=== PATIENT | female | born 1995 | race Caucasian/White ===

== ENCOUNTER 2022-11-28 09:36 | Outpatient (CLI) | payer BC, SELFPAY ==
[2022-11-28] VITALS (7 sets, daily range): BP systolic 107–113; BP diastolic 59–66; PULSE 92–101
[2022-11-28 10:08] LABS: Hematocrit 36.2 % (33.0-51.0); Hemoglobin* 12.2 gm/dL (12.0-16.0); Mean Corpuscular HGB Conc 34 gm/dL (32-36); Mean Corpuscular Hemoglobin 30 pg (26-34); Mean Corpuscular Volume 90 fL (80-100); Platelet Count* 180 K/uL (140-440); Red Blood Count 4.03 m/uL (4.00-5.20); White Blood Count* 10.65 K/uL (4.50-11.00)
[2022-11-28 10:15] LABS: Slide Review Reflex No
[2022-11-28] MEDS: LACTATED RINGERS 1000 ML 1,000 ML IV (10:15)
[2022-11-28] MEDS: ACETAMINOPHEN 500 MG TABLET 1000 MG PO (10:16)
[2022-11-28 10:28] LABS: INR 0.98 (0.91-1.10); Prothrombin Time 13.6 Seconds
[2022-11-28 10:29] LABS: Alanine Aminotransferase* 22 U/L (4-35); Aspartate Amino Transferase* 20 U/L (12-35); Blood Urea Nitrogen* 8 mg/dL (5-24); Creatinine* 0.5 mg/dL (0.5-1.5); Estimated Glomerular Filt Rate 131 ml/min; Fibrinogen* 489 mg/dL (200-450)
[2022-11-28] MEDS: diphenhydrAMINE 50 MG/ML inj IVP (10:30)
[2022-11-28 12:36] LABS: PCR FLU A Negative PCR FLU A (Negative); PCR FLU B Negative PCR FLU B (Negative); SARS PCR* Negative SARS-CoV-2 (Negative)
[2022-11-28 13:03] LABS: Total Protein Urine 16 mg/dL
[2022-11-28 13:04] LABS: Creatinine Urine 29.5 mg/dL
== END 2022-11-28 12:35 | disposition home or self-care (01) ==
LOC: OB OUT 09:36 → OB 09:37
PROVIDERS: PCP Family Medicine; Visit Provider Family Medicine
DX: O26.893 Other specified pregnancy related conditions, third trimester (principal); R51.9 Headache, unspecified; Z3A.28 28 weeks gestation of pregnancy
CPT/HCPCS: 36415; 59025; 82565; 82570; 84156; 84450; 84460; 84520; 85027; 85384; 85610; 87631; 87635; 87804; 99213; A9270; J1200; J7120

== ENCOUNTER 2022-11-30 12:59 | Outpatient (REF) | payer BC, SELFPAY ==
[2022-11-30 13:43] LABS: Total Protein Urine 14 mg/dL
[2022-11-30 13:44] LABS: Creatinine Urine 81.9 mg/dL
[2022-11-30 13:50] LABS: Collection Time Urine 24 Hours; Total Protein 24 Hour Urine 212.8 mg/Day; Total Volume 24 Hour Urine 1520 ml; Urine Creatinine mg/24 Hour 0 mg/Day
== END 2022-11-30 13:00 | disposition home or self-care (01) ==
LOC: LAB 12:59
PROVIDERS: PCP Family Medicine; Visit Provider Family Medicine
DX: Z34.93 Encounter for supervision of normal pregnancy, unspecified, third trimester (principal)
CPT/HCPCS: 82570; 84156

== ENCOUNTER 2022-12-24 10:44 | Outpatient (CLI) | payer BC, SELFPAY ==
[2022-12-24] VITALS (16 sets, daily range): BP systolic 99–126; BP diastolic 52–77; PULSE 80–101; RESP 16–18; TEMP 36.7–36.9
[2022-12-24] MEDS: ONDANSETRON 2 MG/ML inj 4 MG IVP (11:34)
[2022-12-24] MEDS: diphenhydrAMINE 50 MG/ML inj IVP (11:34)
[2022-12-24] MEDS: LACTATED RINGERS 1000 ML 1,000 ML IV ×2 (11:34→12:51)
[2022-12-24 11:58] LABS: Hematocrit 37.6 % (33.0-51.0); Hemoglobin* 12.3 gm/dL (12.0-16.0); Mean Corpuscular HGB Conc 33 gm/dL (32-36); Mean Corpuscular Hemoglobin 30 pg (26-34); Mean Corpuscular Volume 92 fL (80-100); Platelet Count* 212 K/uL (140-440); White Blood Count* 16.46 K/uL (4.50-11.00)
[2022-12-24 12:07] LABS: Slide Review Reflex No
[2022-12-24 12:17] LABS: Alanine Aminotransferase* 21 U/L (4-35); Aspartate Amino Transferase* 22 U/L (12-35); Blood Urea Nitrogen* 10 mg/dL (5-24); Creatinine* 0.4 mg/dL (0.5-1.5); Estimated Glomerular Filt Rate 138 ml/min
[2022-12-24] MEDS: BUTALB/ACETAMINOPHEN/CAFFEINE 1 EACH TABLET PO (12:51)
[2022-12-24 13:19] LABS: Total Protein Urine 35 mg/dL
--- NOTE | 2022-12-24 13:58 | CRLHL7_ITS ---
For Patients: As a result of the Century Cures Act, medical imaging exams and procedure reports are released immediately into your electronic medical record. You may view this report before your referring provider. If you have questions, please contact your health care provider. Indication: Headaches. Technique: Noncontrast sagittal T1, axial FLAIR, T2, diffusion weighted sequences are provided. No comparisons. Findings: The ventricles, sulci and gyri are normal size, shape and contour for age. The midline structures are centrally located with no evidence of shift. There are no suspicious intra or extra-axial fluid collections. No region of restricted diffusion. Expected flow voids in the cavernous carotids and basilar artery. Mild mucosal thickening throughout the paranasal sinuses with relative sparing of the maxillary sinuses. Impression: 1. No radiographic evidence of acute intracranial abnormalities. 2. Mild poly sinusitis. Dictated by Porter Alexander MD @ 12/24/2022 5:25:15 PM Dictated by: Porter Alexander MD @ 12/24/2022 17:25:27 (Electronically Signed)
--- NOTE | 2022-12-24 14:07 | P.OBHP_ITS ---
OB - H&P; HPI Antepartum History of Present Illness Time Seen by Provider: 12:30 Date Seen: 12/24/22 Chief complaint: Maternity Narrative: Mckenzie Reed is a 27 year old female who presents with headaches. She has history of migraines, but this one feels worse and different. She has pain in the occipital area. Patient has no vision changes, though did have some vision changes 2 days ago that resolved with rest/ice pack. She usually feels better with IV fluids, benadryl, tylenol. She has not felt better this time. Baby is moving well. History of Present Dating criteria: based on LMP care: good care Ultrasounds: normal 1st trimester US and normal mid trimester US Review of Systems Eyes: Reports: change in vision (On thursday night) ENMT: Denies: neck pain or difficulty swallowing Cardio: Denies: chest pain, edema, swelling of feet/ankles, lightheadedness or shortness of breath with exertion Resp: Denies: shortness of breath or cough GI: Reports: nausea; Denies: abdominal pain, vomiting or difficulty swallowing : Denies: painful urination or urinary urgency Musculo: Denies: back pain, neck pain or extremity pain Integ/Breast: Denies: rash or itching Neuro: Reports: headache Psych: Reports: anxiety Meds Home Medications and Allergies Home Medications Medication Instructions Recorded Confirmed Type magnesium glycinate 400 mg PO DAILY 11/28/22 12/24/22 History vits,calcium 91-iron 28 pkg PO DAILY 11/28/22 History mg-folic 975 mcg-dha 200 mg oral pack ( + DHA) Allergies Allergy/AdvReac Type Severity Reaction Status Date / Time No Known Allergies Allergy Verified 12/24/22 11:07 OB - H&P: Exam Physical Exam: Vital signs: Pulse BP 96 123/75 12/24/22 14:07 12/24/22 14:07 Constitutional: Constitutional: no acute distress Routine HEENT Exam: Head: Present atraumatic and normal inspection ENT: Present normal exam Routine Neck Exam: Neck: Present full ROM Routine Respiratory Exam: Respiratory: Present CTA bilaterally; Absent crackles or rales Routine Cardiovascular Exam: Cardiovascular: RRR, S1 and S2 Routine Abdominal Exam: Abdominal: Present normal bowel sounds Detailed Labor and Delivery Exam: Patient Gravid: Yes Routine Skin Exam: Present intact Routine Neurological Exam: Present alert and oriented X3 Routine Psychiatric Exam: Present anxious OB - Results Labs Labs: Short CBC 12/24/22 Range/Units 11:28 WBC 16.46 H (4.50-11.00) K/uL Hgb 12.3 (12.0-16.0) gm/dL Hct 37.6 (33.0-51.0) % Plt Count 212 (140-440) K/uL BMP 12/24/22 11:28 BUN 10 Creatinine 0.4 L Liver Function 12/24/22 Range/Units 11:28 AST 22 (12-35) U/L ALT 21 (4-35) U/L OB - A/P Antepartum Assessment and Plan (1) headache in third trimester: Status: Acute Assessment and Plan: discussed with perinatology. They feel most likely migraine headache, not yet concerning for preeclampsia. Recommended monitoring, Imaging and ongoing treatment with meds. Plan - Did not have relief with fiorcet, zofran, IV fluids, tylenol. Will do trial of reglan and if not effective [place]. - MRI brain pending (to assess for venous sinus thrombosis) - Repeat preeclampsia labs in morning - 24 hour urine (pr/cr ratio 1.0 here today, was 0.1 yesterday at [facility]). - Admit overnight for observation. Serial blood pressures and preeclampsia assessments.
[2022-12-24] MEDS: METOCLOPRAMIDE HCL 5 MG/ML INJ 10 MG IVP (17:56)
[2022-12-24] MEDS: HYDROCODONE-ACETAMIN 5-325 MG 1 TAB PO (19:02)
[2022-12-24] MEDS: ACETAMINOPHEN 325 MG TABLET PO (19:02)
[2022-12-24 21:13] LABS: Hematocrit 34.7 % (33.0-51.0); Hemoglobin* 11.4 gm/dL (12.0-16.0); Mean Corpuscular HGB Conc 33 gm/dL (32-36); Mean Corpuscular Hemoglobin 30 pg (26-34); Mean Corpuscular Volume 92 fL (80-100); Platelet Count* 191 K/uL (140-440); Red Blood Count 3.78 m/uL (4.00-5.20); White Blood Count* 14.16 K/uL (4.50-11.00)
[2022-12-24 21:14] LABS: Slide Review Reflex No
[2022-12-24 21:45] LABS: Creatinine* 0.4 mg/dL (0.5-1.5); Estimated Glomerular Filt Rate 138 ml/min
[2022-12-24 21:46] LABS: Alanine Aminotransferase* 20 U/L (4-35); Aspartate Amino Transferase* 22 U/L (12-35); Blood Urea Nitrogen* 7 mg/dL (5-24)
[2022-12-25] VITALS (13 sets, daily range): BP systolic 108–136; BP diastolic 56–80; PULSE 76–113; RESP 14–18; TEMP 36.5–37.3; O2SAT 94–98
[2022-12-25] MEDS: HYDROCODONE-ACETAMIN 5-325 MG 1 TAB PO (03:19)
[2022-12-25 05:47] LABS: Hematocrit 35.4 % (33.0-51.0); Hemoglobin* 11.8 gm/dL (12.0-16.0); Mean Corpuscular HGB Conc 33 gm/dL (32-36); Mean Corpuscular Hemoglobin 31 pg (26-34); Mean Corpuscular Volume 92 fL (80-100); Platelet Count* 183 K/uL (140-440); Red Blood Count 3.86 m/uL (4.00-5.20); White Blood Count* 13.51 K/uL (4.50-11.00)
[2022-12-25 06:03] LABS: Slide Review Reflex No
[2022-12-25 06:08] LABS: Alanine Aminotransferase* 20 U/L (4-35); Aspartate Amino Transferase* 34 U/L (12-35)
[2022-12-25 06:09] LABS: Blood Urea Nitrogen* 6 mg/dL (5-24)
[2022-12-25 06:22] LABS: Creatinine* 0.5 mg/dL (0.5-1.5); Estimated Glomerular Filt Rate 131 ml/min
[2022-12-25] MEDS: SUMAtriptan 6 MG/0.5 ML INJ SUBCUT (07:19)
[2022-12-25] MEDS: MAGNESIUM IV 4 GM/100 ML PIGGYBACK IVPB (07:31)
[2022-12-25] MEDS: LACTATED RINGERS 1000 ML 1,000 ML 75 ML IV (07:31)
[2022-12-25] MEDS: SODIUM CHLORIDE 0.9 % (FLUSH) 10 ML SYRINGE IVF (07:42)
--- NOTE | 2022-12-25 07:43 | PM.FPPN ---
Progress Note: A&P Assessment and plan (1) headache in third trimester: Problem details: Headache in . Unrelieved by several interventions. MRI brain showed mild sinusitis, otherwise normal. Protein/cr ratio 1.0, 24 hour urine being collected. Status: Acute Plan - Discussed with perinatology who suggested subcutaneous imitrex and 4 gram bolus of magnesium. Will do now - If not improving, will discuss further with perinatology - labs reassuring, will complete 24 hour urine - continue preeclampsia assessments and blood pressure monitoring Subjective Subjective Time Seen by Provider: 07:44 Date Seen: 12/25/22 Principal diagnosis: headache in Interval history: Patient was admitted with headache at 32 weeks gestation. Was given IV fluids, tylenol, benadryl, zofran with no relief. We trialed fiorcet without relief. Tried norco overnight without relief. She continues to have headache. Patient this morning woke with 9/10 headache. She went to restroom and on the way had blurry vision that has since persisted. She is very anxious, tearful this morning. She continues to be nauseated. Did not get much sleep overnight. Baby is moving well. Constitutional: fatigue, headache(s) and malaise Eyes: bilateral: blurred vision and decreased vision Cardiovascular: no chest pain Respiratory: no dyspnea Gastrointestinal ROS: no abdominal pain Exam Const: Vital Signs, click to edit/add: Vital Signs - 24 hr 12/24/22 11:00 12/24/22 11:15 12/24/22 11:30 Temperature Pulse Rate 98 96 87 Respiratory Rate Blood Pressure 123/77 125/75 126/73 Pulse Oximetry 12/24/22 11:45 12/24/22 12:00 12/24/22 12:15 Temperature Pulse Rate 86 90 86 Respiratory Rate Blood Pressure 123/75 119/70 125/74 Pulse Oximetry 12/24/22 12:51 12/24/22 13:06 12/24/22 13:21 Temperature Pulse Rate 90 83 90 Respiratory Rate Blood Pressure 123/71 115/63 116/61 Pulse Oximetry 12/24/22 13:36 12/24/22 14:07 12/24/22 14:22 Temperature Pulse Rate 101 H 96 90 Respiratory Rate Blood Pressure 117/74 123/75 118/71 Pulse Oximetry 12/24/22 14:37 12/24/22 14:52 12/24/22 22:48 Temperature Pulse Rate 95 92 80 Respiratory Rate Blood Pressure 101/56 L 103/59 L 99/52 L Pulse Oximetry 12/24/22 22:48 12/25/22 03:05 12/25/22 06:45 Temperature 98.4 F Pulse Rate 76 113 H Respiratory Rate 18 Blood Pressure 108/56 L 136/78 Pulse Oximetry 12/25/22 07:26 12/25/22 07:27 12/25/22 07:27 Temperature Pulse Rate 93 Respiratory Rate Blood Pressure 130/80 Pulse Oximetry 94 94 12/25/22 07:34 12/24/22 19:00 12/25/22 03:05 Temperature 98.1 F 98.0 F Pulse Rate 93 87 Respiratory Rate 16 14 Blood Pressure 130/80 110/67 Pulse Oximetry Documenting provider has reviewed patient's vital signs: yes Common normals: no apparent distress, oriented x3 and alert General appearance: cooperative; not comfortable Orientation/consciousness: Yes awake HENMT: Common normals: normocephalic, head/scalp atraumatic and external nose normal Head and scalp: normal to inspection, normocephalic and atraumatic Nose: external nose normal Resp: Common normals: normal respiratory effort and clear to auscultation bilaterally Auscultation: clear to auscultation bilaterally Cardio: Common normals: regular rate, regular rhythm, S1 normal heart sound, S2 normal heart sound and no murmurs Rate: regular rate Rhythm: regular rhythm Heart sounds: S1 normal and S2 normal GI: Common normals: soft to palpation Palpation: soft : OB/external & speculum: Yes deferred Extremity: Common normals: normal to inspection and full ROM Neuro: Common normals: oriented x3 Sensorium/orientation: awake and alert Deep tendon reflexes: Rt Patellar (L4): 2+ and Lt Patellar (L4): 2+
--- NOTE | 2022-12-25 11:53 | P.OBT_ITS ---
History of Present Illness History of Present Illness Time Seen by Provider: 07:45 History of Present Illness: 27 year old at weeks gestation by 32w4d, presents with with headache. MRI was normal (showed mild sinusitis). Patient has had normal blood pressures. Preeclampsia labs normal except for pr/cr ratio of 1.0. Headache has been unresolved despite IV fluids, IV benadryl, tylenol, reglan, foircet, norco, magnesium (4 gram bolus) and imitrex. She developed headache 12/24 in the occiput which feels different from her typical migraine (which is more frontal). Admitted to labor and delivery for monitoring and management of headache. Woke up in the morning of 12/25 with blurry vision and 10/10 pain. Baby moving naturally: Yes Bleeding: No Contractions: No Leaking fluid: No Discharge: No Heartburn: No Back pain: No Meds Home Medications and Allergies Home Medications Medication Instructions Recorded Confirmed Type magnesium glycinate 400 mg PO DAILY 11/28/22 12/24/22 History vits,calcium 91-iron 28 pkg PO DAILY 11/28/22 History mg-folic 975 mcg-dha 200 mg oral pack ( + DHA) Allergies Allergy/AdvReac Type Severity Reaction Status Date / Time No Known Allergies Allergy Verified 12/24/22 11:07 [facility] Social History Smoking Status: Never smoker History History 2 Elective abortions Para 1 Spontaneous abortions Hx # Term Pregnancies Ectopic pregnancies Hx # Pregnancies Multiple births Number of Living Children 1 OB - H&P: Exam Physical Exam Vital signs: Temp Pulse Resp BP Pulse Ox 97.7 F 100 16 131/75 94 12/25/22 10:28 12/25/22 10:28 12/25/22 10:28 12/25/22 10:28 12/25/22 07:27 Constitutional Constitutional: no acute distress Comments: anxious Routine HEENT Exam Head: Present atraumatic, normal inspection and normocephalic Eye: Present conjunctival injection and EOMI ENT: Present mucous membranes moist and normal exam Routine Neck Exam Neck: Present full ROM and normal inspection; Absent meningismus or tenderness Detailed Neck Exam: Thyroids Thyroid: Present normal Routine Chest/Breast/Axilla Exam Chest wall: Absent tenderness Routine Respiratory Exam Respiratory: Present CTA bilaterally; Absent crackles or rales Routine Cardiovascular Exam Cardiovascular: RRR, S1 and S2 Routine Abdominal Exam Abdominal: Present soft Comments: gravid Routine Exam Patient deferred: external exam Detailed Labor and Delivery Exam Patient Gravid: Yes Routine Extremities Exam Extremities: Absent calf tenderness or pedal edema Routine Skin Exam Present intact and dry Routine Neurological Exam Present alert and oriented X3 Detailed Neurological Exam DTR: 2+: patellar (L) and patellar (R) Comments: no clonus Detailed Neurological Exam: Coma Scale Eye Opening: Spontaneous (4) Verbal Response: Orientated (5) Routine Psychiatric Exam Present anxious Results Labs Laboratory Tests 12/25/22 12/24/22 12/24/22 Range/Units 05:25 21:07 12:29 WBC 13.51 H 14.16 H (4.50-11.00) K/uL RBC 3.86 L 3.78 L (4.00-5.20) m/uL Hgb 11.8 L 11.4 L (12.0-16.0) gm/dL Hct 35.4 34.7 (33.0-51.0) % MCV 92 92 (80-100) fL MCH 31 30 (26-34) pg MCHC 33 33 (32-36) gm/dL Plt Count 183 191 (140-440) K/uL BUN 6 7 (5-24) mg/dL Creatinine 0.5 0.4 L (0.5-1.5) mg/dL Estimated GFR 131 138 ml/min AST 34 22 (12-35) U/L ALT 20 20 (4-35) U/L Urine Creatinine 32.0 mg/dL Protein/Creatinin Ratio 1.00 H (0-0.19) Urine Total Protein 35 mg/dL 12/24/22 Range/Units 11:28 WBC 16.46 H (4.50-11.00) K/uL RBC 4.10 (4.00-5.20) m/uL Hgb 12.3 (12.0-16.0) gm/dL Hct 37.6 (33.0-51.0) % MCV 92 (80-100) fL MCH 30 (26-34) pg MCHC 33 (32-36) gm/dL Plt Count 212 (140-440) K/uL BUN 10 (5-24) mg/dL Creatinine 0.4 L (0.5-1.5) mg/dL Estimated GFR 138 ml/min AST 22 (12-35) U/L ALT 21 (4-35) U/L Urine Creatinine mg/dL Protein/Creatinin Ratio (0-0.19) Urine Total Protein mg/dL Assessment and Plan Assessment and plan (1) headache in third trimester: Problem comment: Headache in . Unrelieved by several interventions. MRI brain showed mild sinusitis, otherwise normal. Protein/cr ratio 1.0, 24 hour urine being collected. Developed blurry vision on morning of 12/25 that has persisted. Pain 10/10 Status: Acute Mode of transport: [facility] Transfer to: [place] Plan - Discussed with perinatology. recommend transfer to [facility] Mother [facility] for neuro consultation and ongoing monitoring. Accepting physician is Dr. Waggoner. Appreciate their assistance with this arthur patient.
[2022-12-25] MEDS: ONDANSETRON 2 MG/ML inj 4 MG IVP (12:19)
[2022-12-25 15:04] LABS: Total Protein Urine 14 mg/dL
[2022-12-25 15:05] LABS: Creatinine Urine 39.1 mg/dL
[2022-12-25 15:16] LABS: Collection Time Urine 24 Hours; Total Volume 24 Hour Urine 3250 ml; Urine Creatinine mg/24 Hour 0 mg/Day
--- NOTE | 2022-12-29 21:00 | PC.OBNST ---
NST Note NST Note Start: 12/24/22 10:48 Freq: ONCE Status: Discharge Protocol: Document 12/25/22 09:50 SD (Rec: 12/29/22 20:35 SD [id number]) NST Note 2 Para (# of births) 1 EDC 02/15/23 Gestational Age In Weeks & Days 33 Weeks & 1 Days Patient Presented with Complaint(s) of Headache Reactive Yes Appropriate for Gestational Age Yes RN Lanie Dowling Date 12/25/22 Reactive Yes Appropriate for Gestational Age Yes ETHAN Mari Date 12/25/22 OB NST charge Yes Complete NST Note via Write Note Yes The provider's electronic signature indicates the NST is reactive/appropriate for gestational age. *Note to provider: If an addendum is required, open the patient's chart and click on the note under the Nurse/Allied Health tab.
== END 2022-12-25 13:43 ==
LOC: OB OUT 10:46 → OB 10:48
PROVIDERS: PCP Family Medicine; Visit Provider Family Medicine
DX: O26.893 Other specified pregnancy related conditions, third trimester (principal); R51.9 Headache, unspecified; Z3A.33 33 weeks gestation of pregnancy
CPT/HCPCS: 36415; 59025; 70551; 82565; 82570; 84156; 84450; 84460; 84520; 85027; 99213; A9270; J1200; J2405; J2765; J3030; J3475; J7120

== ENCOUNTER 2022-12-25 13:18 | Outpatient (CLI) | payer BC, SELFPAY | END 2022-12-25 13:19 | disposition home or self-care (01) | LOC: AMB 12-29 09:49 | PROVIDERS: PCP Family Medicine; Visit Provider Emergency Medicine Emergency Medical Services | DX: O26.899 Other specified pregnancy related conditions, unspecified trimester (principal); G43.909 Migraine, unspecified, not intractable, without status migrainosus | CPT/HCPCS: A0425; A0428 ==

== ENCOUNTER 2023-02-07 17:11 | Inpatient (IN) | payer BC, SELFPAY ==
[2023-02-07] VITALS (7 sets, daily range): BP systolic 116–142; BP diastolic 60–85; PULSE 81–111; RESP 16; TEMP 36.6–36.8; O2SAT 97; BMI 32.2
--- NOTE | 2023-02-07 17:58 | PM.OBHPLI ---
OB - H&P: HPI Labor/Induction History of Present Illness Time Seen by Provider: 17:58 Date Seen: 02/07/23 Chief Complaint: The patient is a 27 year old 2 para 1 at 38w6d gestation by LMP and consistent with 8 week ultrasound, who presents for Induction of labor. Patient has had persistent migraine for 6 weeks and per perinatology recommends IOL at 39 weeks of age. Chief complaint: Maternity : 2 Para: 1 Indications for induction: other (hospitalization for maternal migraine) Narrative: Mckenzie Reed is a 27 year old female who presents for IOL at 38w6d. She had 5 day hospitalization for persistent migraine 6 weeks ago. Has had ongoing waxing and waning migraine headache. Preeclampsia labs have been reassuring throughout this time. Blood pressures within normal limits. Did get betamethsone for lung maturity at 36 weeks given accelerating migraine. Per perinatology, recommend induction of labor at 39 weeks for persistent migraine given risk of progression to preeclampsia. History of Present Dating criteria: based on LMP care: good care Ultrasounds: normal 1st trimester US and abnormal US findings Abnormal ultrasound findings: microcephaly on 20 week ultrasound. However, level 2 ultrasound had appropriate growth (50% overall, normal HC) complications comment: Persistent migraine Labs Blood type: A (+) positive Rubella: immune RPR/VDLR: nonreactive GBS status: negative HBsAG: negative Review of Systems Const: Denies: fever Eyes: Denies: change in vision or blurry vision ENMT: Denies: throat pain or neck pain Cardio: Denies: chest pain, edema or shortness of breath with exertion Resp: Denies: shortness of breath GI: Denies: nausea or vomiting Musculo: Denies: neck pain Neuro: Reports: headache (2-12/08 recently. ) Meds Home Medications and Allergies Home Medications Medication Instructions Recorded Confirmed Type magnesium glycinate 400 mg PO DAILY 11/28/22 02/07/23 History vits,calcium 91-iron 28 1 pkg PO DAILY 11/28/22 02/07/23 History mg-folic 975 mcg-dha 200 mg oral pack ( + DHA) Allergies Allergy/AdvReac Type Severity Reaction Status Date / Time No Known Allergies Allergy Verified 02/07/23 17:39 OB - H&P: Exam Physical Exam: Vital signs: Temp Pulse Resp BP Pulse Ox 98 F 108 H 16 131/79 97 02/07/23 17:20 02/07/23 17:21 02/07/23 17:20 02/07/23 17:21 02/07/23 17:19 Constitutional: Constitutional: no acute distress Routine HEENT Exam: Head: Present atraumatic and normal inspection Routine Neck Exam: Neck: Present full ROM Detailed Neck Exam: Thyroids: Thyroid: Present normal Routine Respiratory Exam: Respiratory: Present CTA bilaterally Routine Cardiovascular Exam: Cardiovascular: RRR, S1 and S2 Detailed Labor and Delivery Exam: Patient Gravid: Yes Dilation (cm): 0 Effacement (%): 0 Cervix position: posterior Consistency: medium Cervical ripeness score: 1 Tachysystole: No Contraction intensity: Mild Fetus (Single): Station: -3 Amniotic Membrane Status: intact Heart Rate Baseline: 145 Monitor Accelerations: Present Monitor Decelerations: None Furrier Apprentice Variability: Moderate (6-25) Routine Back/Spine/Pelvis Exam: Back/Spine: full ROM Routine Skin Exam: Present intact Routine Neurological Exam: Present alert and oriented X3 OB - Problem Based A/P Additional Plan (1) headache in third trimester: Problem details: Headache in . Unrelieved by several interventions. NO objective evidence of preeclampsia. Per MPP, recommends IOL at 39 weeks given persistence of migraine x 6 weeks Status: Acute (2) Term : Status: Acute Plan - IOL with cytotec PO - Monitor headache, if any new symptoms or worsening of headache will do preeclampsia labs/assessments - Anticipate Delivery/Labor/Induction Plan Plan: induction Induction method: per misoprostol protocol
[2023-02-07] MEDS: miSOPROStoL 25 MCG/0.25 TABLET PO ×3 (18:03→22:17)
[2023-02-08] VITALS (102 sets, daily range): BP systolic 98–139; BP diastolic 56–89; PULSE 68–106; RESP 16; TEMP 36.4–36.9; O2SAT 96–100
[2023-02-08] MEDS: miSOPROStoL 25 MCG/0.25 TABLET PO (00:11)
[2023-02-08] MEDS: LACTATED RINGERS 1000 ML 1,000 ML 125 ML IV (04:11)
--- NOTE | 2023-02-08 08:12 | PM.OBPNL ---
Subjective Time Seen by Provider: 08:12 Date Seen: 02/08/23 Narrative: Headache is manageable today. Contractions have been consistent since 2am. She rates contractions 5/10. Last check had her at 1.5, 50%, 0 station. She has zavala score of 7. She had a nose bleed this morning. Plans on epidural. Objective Vital Signs: Last Vital Signs Temp 97.5 F L 02/08/23 07:20 Pulse 88 02/08/23 07:20 Resp 16 02/08/23 07:20 BP 129/89 02/08/23 07:20 Pulse Ox 97 02/07/23 17:19 Pelvic Exam Dilation (cm): 1.5 Effacement (%): 50 Station: 0 Contractions Monitor mode: None Contraction pattern: Regular Contraction intensity: Moderate Pitocin Rate (mU/min): 0 Assessment Assessment: induction ongoing and early labor Station: 0 Heart Rate Baseline: 145 Monitor Accelerations: Present Monitor Decelerations: None Plan Plan: - continue induction - continue to monitor for signs/symptoms of preeclampsia (blood pressures continue to be appropriate) - Will recheck in 2 hours, if no change would start pitocin as ZAVALA score >6
[2023-02-08] MEDS: SODIUM CHLORIDE NASAL SPRAY 1 SPRAY NOSTRIL-B (09:18)
[2023-02-08] MEDS: LACTATED RINGERS 1000 ML 1,000 ML 1200 ML IV ×2 (09:35→10:27)
[2023-02-08] MEDS: fentaNYL 250 MCG/5 ML inj 100 MCG EPIDURAL (10:00)
[2023-02-08] MEDS: LIDOCAINE 2% (PF) 5 ML VIAL EPIDURAL (10:04)
[2023-02-08] MEDS: ROPIVACAINE 0.2% 100 ml 100 ML 12 MG EPIDURAL ×2 (10:04→18:03)
--- NOTE | 2023-02-08 10:14 | P.ANBPRC_ITS ---
PFSH PFSH Social History What is your current living situation: I presently have a place to live Problems where you live: no known problems In the past 12 months, utilities in danger of being shut off: no In the past 12 mos, have been you worried that your food would run out before you had money to buy more?: never true In the past 12 mos, the food you bought just didn't last and you didn't have money to buy more?: never true Smoking Status: Never smoker How often does anyone, including family, friends and others, physically hurt you : How often does anyone, including family, friends and others, insult or talk down to you: How often does anyone, including family, friends and others, threaten you with harm: How often does anyone, including family, friends and others, scream or curse at you: Meds Home Medications and Allergies Home Medications Medication Instructions Recorded Confirmed Type magnesium glycinate 400 mg PO DAILY 11/28/22 02/07/23 History vits,calcium 91-iron 28 1 pkg PO DAILY 11/28/22 02/07/23 History mg-folic 975 mcg-dha 200 mg oral pack ( + DHA) famotidine 20 mg tablet 20 mg PO DAILY 02/07/23 02/07/23 History metoclopramide HCl 10 mg tablet 10 mg PO Q6H PRN 02/07/23 02/07/23 History ondansetron HCl 4 mg tablet 4 mg PO Q4H 02/07/23 02/07/23 History sumatriptan succinate 50 mg tablet 50 mg PO .twice 02/07/23 02/07/23 History Allergies Allergy/AdvReac Type Severity Reaction Status Date / Time No Known Allergies Allergy Verified 02/07/23 17:39 Results Vital Signs Vital Signs: Last Vital Signs Temp 98.2 F 02/08/23 10:07 Pulse 102 H 02/08/23 10:13 Resp 16 02/08/23 10:07 BP 125/57 L 02/08/23 10:13 Pulse Ox 98 02/08/23 10:13 Weight: 90.582 kg Height: 167.64 cm Anesthesia Procedures Epidural Insertion Patient Location: OB Start Time: 09:45 Stop Time: 10:45 Start Date: 02/08/23 Stop Date: 02/08/23 Reason for Block: primary anesthetic Patient Position: sitting Performed By: Mika Roberts Preanesthetic Checklist: IV checked, risks and benefits discussed, surgical consent, monitors and equipment checked, pre-op evaluation, timeout performed and anesthesia consent Prep: chlorhexidine gluconate Monitoring: blood pressure monitoring, laboratory monitor, continuous pulse oximetry and heart rate Approach: midline Vertebral Space: lumbar (1-5) Needle Type: Tuohy needle Injection Technique: continuous catheter Needle gauge: 17 Needle Length (cm): 10 cm Needle Insertion Depth (cm): 6 Catheter Gauge: 19 Catheter Type: multi-orifice Catheter at skin depth (cm): 12 Test Dose Result: negative and lidocaine 1.5% with epinephrine 1 to 200,000 Events: other
[2023-02-08] MEDS: OXYTOCIN 30 unit/500 ML in NS 30 UNIT/500 ML BAG IVPB (13:40)
[2023-02-08] MEDS: CALCIUM CARBONATE 500 MG CHEW PO (16:56)
[2023-02-08] MEDS: LACTATED RINGERS 1000 ML 1,000 ML 117 ML IV (17:55)
--- NOTE | 2023-02-08 18:26 | P.OBPN_ITS ---
Subjective Time Seen by Provider: 17:45 Date Seen: 02/08/23 Narrative: Patient is comfortable with her epidural. Objective Exam: Sleeping, wakes with me entering room. Vital Signs: Last Vital Signs Temp 98.3 F 02/08/23 17:52 Pulse 88 02/08/23 18:12 Resp 16 02/08/23 17:52 BP 107/57 L 02/08/23 18:12 Pulse Ox 97 02/08/23 12:09 Pelvic Exam Dilation (cm): 4 Effacement (%): 80 Station: 0 Comments: anterior, medium consistenc Contractions Monitor mode: External Contraction Frequency: 3-4 Contraction pattern: Regular Contraction intensity: Strong/Firm Pitocin Rate (mU/min): 5 Assessment Assessment: induction ongoing Station: 0 Amniotic Membrane Status: AROM (clear fluid) Heart Rate Baseline: 145 Automatic Hemmer Variability: Moderate (6-25) Monitor Accelerations: Present Monitor Decelerations: None Plan Plan: - AROM done with moderate amount of clear fluid - Continue to titrate pitocin - Anticipate
[2023-02-08] MEDS: LIDOCAINE 1 % PF 30 ML INJECTION (21:14)
[2023-02-08] MEDS: miSOPROStoL 800 MCG/4 TABLET PR (21:17)
--- NOTE | 2023-02-08 21:35 | W.PM.OBVAGDE ---
OB Procedure Vag Delivery Mother Details Mother Details: The patient is a 27 year-old, 2, Para 1, admitted on 02/07/23 at 38.6 Days gestation. : 2 Para: 1 Weeks Gestation: 39 Admission Date: 02/07/23 Additional Details Amniotic Membrane Status: AROM Amniotic Membrane Rupture Date: 02/08/23 Amniotic Membrane Rupture Time: 17:31 Amniotic Membrane Fluid Description: Clear Analgesia/Anesthesia Type: Epidural Waterbirth: No Pitcoin: Yes Intrapartal Events: Labor Induction, Excessive Bleeding (large gush after baby, resolved with fundal massage and cytotec) and Precipitous Labor <3 Hrs Induction Method: per misoprostol protocol, per pitocin protocol and AROM Labor Onset: 20:00 Complete: 20:39 Pushin:49 Heart: heart tones during second stage were category 2. Heart rate dropped to 80s between last 2 contractions of pushing Delivery Details Delivery Date: 02/08/23 Delivery Time: 21:01 Route of delivery: Infant Gender: Female Viability: Alive; Heart Rate Present Position at Delivery: OA Delivery Details: Patient was admitted for IOL for persistent 6 weeks migraine. Was unfavorable, so cytotec was started per protocol. Progressed to navarro score of 7 then progressed to 3-4 cm. Unfortunately stalled out at this for quite some time despite pitocin. Epidural was placed for analgesia with good response. AROM was performed at 1731. Patient began to feel pressure around 2000. Checked and was 4 cm. Pressure increased shortly after and was complete. She pushed starting at 2048 and pushed very effectively. She delivered at 210 over intact perineum via spontaneous vaginal delivery. Nuchal cord was reduced x 1. Infant was placed on maternal abdomen.? Cord was clamped and cut after a 30-60 second delay. Nose and mouth were bulb suctioned.? weight pending. Large gush of blood after delivery, so pitocin and cytotec were given. Placenta delivered spontaneously. Maternal perineum showed small 2nd degree laceration that was repaired in the usual fashion after administration of lidocaine. Sponge and sharp count were correct. QBL was 250. 1 Minute Interval Total Score: 8 5 Minute Interval Total Score: 9 Additional Details Shoulder Dystocia: No Placenta Delivery Time: 21:06 Placental Delivery Description: Spontaneous Delivery repair: Vicryl Blood Loss: 250 Laceration: Perineal - 2nd Degree Episiotomy Description: None Blood Loss Measurement Type: QBL Bakri Used: No Sponge/Need Count Correct: Yes Cord Vessel Description: 3 Vessels and Nuchal Cord Event Summary Status: Mother and infant were stable after delivery. Disposition: no change
[2023-02-08] MEDS: ACETAMINOPHEN 500 MG TABLET 1000 MG PO (22:35)
[2023-02-09 01:30] VITALS: BP 134/85; PULSE 79; RESP 16; TEMP 36.6; O2SAT 98
[2023-02-09] MEDS: IBUPROFEN 600 MG TABLET PO ×4 (01:30→22:30)
[2023-02-09 06:01] VITALS: BP 120/74; PULSE 90; RESP 16; TEMP 36.4; O2SAT 95
[2023-02-09] MEDS: ACETAMINOPHEN 500 MG TABLET 1000 MG PO ×3 (06:12→19:28)
[2023-02-09 06:44] LABS: Hemoglobin* 11.9 gm/dL (12.0-16.0)
[2023-02-09 07:58] VITALS: BP 133/86; PULSE 81; RESP 16; TEMP 36.5; O2SAT 96
[2023-02-09] MEDS: DOCUSATE SODIUM 100 MG CAPSULE PO (08:04)
--- NOTE | 2023-02-09 12:11 | PM.OBPNVD1 ---
OB - PN:Subj Subjective Time Seen by Provider: 07:45 Date Seen: 02/09/23 Narrative: PPD#1 from . Overall doing well. well. Lochia is appropriate. Voiding and stooling. Denies ISSA symptoms. OB - PN: Obj Exam Physical Exam: Vital signs: Temp Pulse Resp BP Pulse Ox O2 Del Method 97.7 F 81 16 133/86 96 Room Air 02/09/23 07:58 02/09/23 07:58 02/09/23 07:58 02/09/23 07:58 02/09/23 07:58 02/09/23 07:58 Narrative: General appearance: Well-appearing adult female. Alert, oriented and appropriate. Sitting up in hospital bed. HEENT: EOMI, no conjunctival injection or discharge. MMM. Neck: Supple. CV: RRR, no rubs, murmurs or extra heart sounds. Pulm: CTAB, no wheezes, rales or rhonchi. Abdomen: Soft, non-tender. Fundus palpated 2 cm above the umbilicus. MSK: Moving all extremities. Ext: Warm and well-perfused. No LE edema. Skin: No rashes appreciated over exposed skin. Neuro: Grossly normal strength and sensation. No focal deficits. Psych: Normal affect. OB - PN: Obj Data Labs Labs: Laboratory Results - last 24 hr 02/09/23 06:30 Hgb 11.9 L OB - PN: A/P Vaginal Delivery Assessment and Plan (1) headache in third trimester: Problem details: Headache in . Unrelieved by several interventions. NO objective evidence of preeclampsia. Per MPP, recommends IOL at 39 weeks given persistence of migraine x 6 weeks Status: Acute (2) Term : Status: Acute Plan Plan: routine care Comments: - Anticipate discharge 6/13 AM
[2023-02-09 13:30] VITALS: BP 112/71; PULSE 88; RESP 16; TEMP 36.9
[2023-02-09 17:19] VITALS: BP 119/82; PULSE 91; RESP 16; TEMP 36.7
[2023-02-09 19:43] VITALS: BP 125/81; PULSE 87; RESP 16; O2SAT 97
[2023-02-10 02:00] VITALS: BP 117/71; PULSE 84; RESP 16; TEMP 36.5; O2SAT 97
[2023-02-10] MEDS: ACETAMINOPHEN 500 MG TABLET 1000 MG PO ×2 (02:06→09:30)
[2023-02-10] MEDS: IBUPROFEN 600 MG TABLET PO (04:44)
--- NOTE | 2023-02-10 06:39 | PM.OBDSVD1 ---
DS: Providers Provider Time Seen by Provider: 06:39 Date Seen: 02/10/23 Date of admission: 02/07/23 17:11 Primary care physician: Randee Johnson MD Admitting Clinician: Randee Johnson MD Attending Physician on discharge: Randee Johnson MD Date of Discharge: 02/10/23 DS: Diagnosis Discharge Diagnosis (1) Term : Status: Acute (2) Vaginal delivery: Status: Acute Exam Const: Vital Signs, click to edit/add: Vital Signs - 24 hr 02/09/23 07:58 02/09/23 13:30 02/09/23 17:19 Temperature 97.7 F 98.4 F 98.1 F Pulse Rate [Pulse Oximeter] 81 88 91 Respiratory Rate 16 16 16 Blood Pressure [Le ft Arm] 133/86 112/71 119/82 Pulse Oximetry 96 Oxygen Delivery Me thod Room Air Room Air Room Air 02/09/23 19:43 02/10/23 02:00 Temperature 97.7 F Pulse Rate [Pulse Oximeter] 87 84 Respiratory Rate 16 16 Blood Pressure [Le ft Arm] 125/81 117/71 Pulse Oximetry 97 97 Oxygen Delivery Me thod Room Air Room Air Common normals: no apparent distress and healthy appearing General appearance: cooperative and comfortable : Uterus: U/1 and firm Lochia: scant Extremity: Common normals: no pedal edema OB - DS: Summary Hospital Course Hospital Course: The patient is a 27 year old G 2 P 1 admitted at 38 6/7 weeks gestation that was admitted to the Center on 02/07/23 for induction labor due to persistent migraine for 6weeks. She had a preciptious vaginal delivery complicated by initial gush of blood after delivery which responded well to fundal massage and cytotec. She delivered a viable female . She is breast feeding. the patient has done well. pt denies any concerns. Lochia scant per nursing. Peripartum Data Infant delivery method: Vaginal Laceration description: Perineal - 2nd Degree complications: none Gender: Female Infant Discharge Plan: Home Status at Discharge Functional status at discharge: independent ambulation Time Spent with Patient Time attestation: Total time spent providing and/or coordinating discharge services: Discharge Plan Discharge Disposition: Home, Self-Care Date of Admission: 02/07/23 17:11 Primary Care Provider: Randee Johnson Condition: Stable Anticipated Discharge Date/Time: 02/10/23 06:54 Discharge Medications: New acetaminophen 500 mg Tablet 1,000 mg PO Q6H PRN (Reason: pain/fever) Qty: 30 0RF docusate sodium 100 mg Capsule 100 mg PO DAILY Qty: 30 0RF ibuprofen 600 mg Tablet 600 mg PO Q6H PRNQty: 30 0RF Continued famotidine 20 mg tablet 20 mg PO DAILY sumatriptan succinate 50 mg tablet 50 mg PO .twice Rx Instructions: do not exceed 4 doses per 24 hrs + DHA 28 mg iron- 975 mcg-200 mg combo pack 1 pkg PO DAILY Discontinued metoclopramide HCl 10 mg tablet 10 mg PO Q6H PRN ondansetron HCl 4 mg tablet 4 mg PO Q4H magnesium glycinate 400 mg PO DAILY Discharge Orders: Discharge Order (Routine); Ordered 02/10/23 Ordered By: Franca Negrete Patient Education: OB Vaginal/Breast Feeding Activity Level: Other Activity Detail: pelvic rest x 6 weeks Discharge Diet: Regular Follow Up Appointments: Randee Johnson MD [Primary Care Provider] - ( appointment in 6 weeks. Touch base with Dr Johnson and baby's checks over next couple weeks) [facility]: [facility] Inst[facility]
[2023-02-10 09:00] VITALS: BP 123/85; PULSE 87; RESP 18; TEMP 36.4; O2SAT 96
[2023-02-10] MEDS: DOCUSATE SODIUM 100 MG CAPSULE PO (09:30)
[2023-02-10 11:05] VITALS: BP 123/85; PULSE 87; RESP 18; TEMP 36.4
== END 2023-02-10 11:00 | disposition home or self-care (01) | DRG 560 ==
PROVIDERS: Admitting Provider Family Medicine; PCP Family Medicine; Visit Provider Family Medicine
DX: O62.3 Precipitate labor (principal); O70.1 Second degree perineal laceration during delivery; O99.891 Other specified diseases and conditions complicating pregnancy; G43.809 Other migraine, not intractable, without status migrainosus; Z3A.38 38 weeks gestation of pregnancy; Z37.0 Single live birth
CPT/HCPCS: 01967; 36415; 59200; 76815; 85018; A9270; J2001; J2370; J2795; J3010; J7120

== ENCOUNTER 2024-03-24 06:05 | Day surgery (SDC) | payer BC, SELFPAY ==
[2024-03-24 06:15] VITALS: BP 116/70; PULSE 70; RESP 16; TEMP 36.6; O2SAT 97; BMI 31.2
[2024-03-24] MEDS: SODIUM CHLORIDE 0.9 % (FLUSH) 10 ML SYRINGE IVF (06:40)
[2024-03-24] MEDS: LACTATED RINGERS 1000 ML 1,000 ML 100 ML IV (06:40)
[2024-03-24 06:53] LABS: Ur HCG Qualitative* Negative (Negative)
[2024-03-24 06:55] LABS: Hemoglobin* 13.3 gm/dL (12.0-16.0)
--- NOTE | 2024-03-24 06:55 | W.PM.H&PU ---
History & Physical Update History & Physical Update H&P Reviewed and patient assessed: No changes noted H&P Updates: No interval changes. Reports that she's due for her menstrual cycle any day now. Currently contraception: partner's vasectomy Pelvic US: uterus 7.8 cm x 2.8 x 4.7 cm. Endometrial thickness 6.8 millimeters. No endometrial fluid or uterine fibroid. EMB on 03/11/24: Proliferative endometrium. Hgb today: 13.3 gm/dL UPT: negative
--- NOTE | 2024-03-24 07:10 | PM.GYNPRHA ---
Procedure Pre-op/Post-op diagnoses: Pre-Op/Post-Op Diagnoses Operation Date: 03/24/24 07:15 <No data on this case meets the specified criteria> Procedure: Procedures Operation Date: 03/24/24 07:15 Hysteroscopy, dilation, and endometrial ablation Narrative: Preoperative diagnosis: Mckenzie is a 28 year-old with abnormal uterine bleeding, heavy and irregular Postoperative diagnosis: Same Procedure: 1. Hysteroscopy, Dilation 2. Endometrial ablation with the Sandra. Anesthesia: Conscious sedation, paracervical block. Surgeon: Merlene Carrizales MD Lead Sql Developer: None Estimated blood loss: <5mL Specimen: Endometrial curettings to pathology. Findings: Exam under anesthesia: Uterus: anteverted position, less than 6 week sized, mobile, with no masses or nodularity palpable. Uterus sounded to 8 cm. The cervix sounded to 3 cm. Cavity length 5 cm. No adnexal masses or nodularity palpable. On hysteroscopy: normal uterine cavity without masses or defects. Normal bilateral tubal ostia Procedure: Mckenzie was taken to the operating operating room more conscious sedation was found to be adequate. The patient was placed on in the dorsal lithotomy position and an exam under anesthesia was performed with findings stated above. She was then prepped and draped in a normal sterile manner. A bivalve speculum was placed in the vagina. The cervix appears multiparous. Otherwise no abnormalities. The paracervical block was placed using 1% lidocaine with epinephrine, 5 mL was injected at the 4 and 8 o'clock positions on the cervix. The anterior lip of the cervix was grasped with a long Allis clamp. The cervix dilated to Hegar 6. The uterus sounded to 8 cm. The Truclear hysteroscope was advanced into the uterus. A diagnostic hysteroscopy was performed with normal saline as the insufflation medium. Findings are stated above. The incisor was then removed. The endometrial cavity appeared normal. Saline deficit at the end of the procedure 65 mL. Total saline used 280 mL. Attention was turned to performing the endometrial ablation. The hysteroscope was removed. The cervix was then dilated to Hegar 8. The Sandra device was advanced into the uterus. The cavity check was completed and the ablation took place over 2 min. The Sandra was removed, the hysteroscope readvanced to document ablation of the entire cavity. The hysteroscope was then removed. The Allis clamp was removed from the cervix. was used for hemostasis. The speculum was removed from the vaginal canal. The patient tolerated the procedure well. Sponge, lap and instrument counts were correct x2 at the end of the procedure. The patient was taken to the recovery area in stable condition.
--- NOTE | 2024-03-24 07:51 | SUR.OPER ---
PATIENT QUESTIONS ANSWERED SATISFACTORILY PREOPERATIVELY. PATIENT BROUGHT TO OR #4 PER CART. Patient positioned supine on OR #4 bed.? Perioperative team supported arms bilaterally on arm boards.? Final approval of positioning by surgeon. CONTINUOUS IRRIGATION OF THE UTERUS WITH NACL DURING PROCEDURE.
--- NOTE | 2024-03-24 08:04 | W.ANESCHARGE ---
Anesthesia Charges Start Date/Time Anesthesia Start Date: 03/24/24 Anesthesia Start Time: 07:15 Stop Date/Time Anesthesia Stop Date: 03/24/24 Anesthesia Stop Time: 08:07
[2024-03-24 08:05] VITALS: BP 112/73; PULSE 60; RESP 16; TEMP 36.6; O2SAT 95
[2024-03-24 08:15] VITALS: BP 117/75; PULSE 48; RESP 16; O2SAT 96
[2024-03-24 08:30] VITALS: BP 116/70; PULSE 55; RESP 16; O2SAT 96
[2024-03-24 08:45] VITALS: BP 116/71; PULSE 51; RESP 16; O2SAT 96
--- NOTE | 2024-03-24 10:25 | W.ANESCHARGE ---
Anesthesia Charges Start Date/Time Anesthesia Start Date: 03/24/24 Anesthesia Start Time: 07:15 Stop Date/Time Anesthesia Stop Date: 03/24/24 Anesthesia Stop Time: 08:07
== END 2024-03-24 09:11 | disposition home or self-care (01) ==
LOC: OR 06:05
PROVIDERS: PCP Family Medicine; Visit Provider Obstetrics & Gynecology
PROC: 0UF98ZZ Fragmentation in Uterus, Via Natural or Artificial Opening Endoscopic (ICD-10-PCS; CPT 58558; principal; 2024-03-24 07:15)
DX: N92.1 Excessive and frequent menstruation with irregular cycle (principal); N93.8 Other specified abnormal uterine and vaginal bleeding
CPT/HCPCS: 58558; 00952; 36415; 81025; 85018; 86850; 86900; 86901; C1782; J1100; J1885; J2405; J2704; J3010; J7120

== ENCOUNTER 2024-06-27 09:45 | Emergency (ER) | payer BC, SELFPAY ==
[2024-06-27 09:56] VITALS: BP 136/91; PULSE 73; RESP 18; TEMP 36.9; O2SAT 97; BMI 30.7
--- NOTE | 2024-06-27 10:26 | ED_ITS ---
HPI - General Adult General Chief complaint: Chest Pain Stated complaint: Chest pain, chest pressure Time Seen by Provider: 06/27/24 09:59 Source: patient Mode of arrival: ambulatory Limitations: no limitations History of Present Illness HPI narrative: 28-year-old female presenting today with episodes of chest pressure. 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 It lasted about 10 seconds however, she felt uncomfortable for 10 minutes afterwards. Her Small watch stated that her pulse went up to 153 beats per minute. she states that this has been occurring approximately 2 times per week for the last 2 months. She is unsure if her heart races every time. Right now she feels worn out. Denies current chest pain. She does not feel short of breath when the episodes occur. She does feel slightly nauseated, no vomiting. She denies changes in her skin or hair. She denies diarrhea or constipation. She denies any urinary symptoms. She denies any drug use. She denies tobacco or vaping. Father had a heart attack when he was 50. She denies any history of sudden in younger family members. past medical history significant for migraine headaches for which she takes Imitrex p.r.n.. She also had preeclampsia with previous . Related Data Home Medications ?Medication ?Instructions ?Recorded ?Confirmed multivitamin 1 tab PO QDAY 02/17/24 06/13/24 sumatriptan succinate 50 mg tablet 50 mg PO BID PRN migraine 03/22/24 06/13/24 Previous Rx's ?Medication ?Instructions ?Recorded ibuprofen 600 mg tablet 600 mg PO Q6H PRN #30 tabs 03/24/24 Allergies Allergy/AdvReac Type Severity Reaction Status Date / Time No Known Allergies Allergy Verified 06/27/24 10:02 Review of Systems Status of ROS: Reports: 10 or more systems reviewed and unremarkable except as noted in History and below [facility] Medical History headache in third trimester (12/24/22) ?O26.893 - Other specified related conditions, third trimester (ICD-10) ?R51.9 - Headache, unspecified (ICD-10) Vaginal delivery (04/12/20) ?O80 - Encounter for full-term uncomplicated delivery (ICD-10) Surgical History History of wisdom tooth extraction ?K08.409 - Partial loss of teeth, unspecified cause, unspecified class (ICD- 10) History of tonsillectomy ?Z90.89 - Acquired absence of other organs (ICD-10) History of arthroscopy of knee ?Z98.890 - Other specified postprocedural states (ICD-10) Social History What is your current living situation?: I presently have a place to live Problems where you live: no known problems In the past 12 months, utilities in danger of being shut off: no In past 12 months, lack of transportation kept you from medical appts, meetings, work, or getting things needed for daily living: no In the past 12 mos, have been you worried that your food would run out before you had money to buy more?: never true In the past 12 mos, the food you bought just didn't last and you didn't have money to buy more?: never true Smoking Status: Never smoker Do you use any of these nicotine containing products: None How often do you have a drink containing alcohol: monthly or less Alcohol type: beer, wine and hard liquor How many standard drinks containing alcohol do you have on a typical day: 1 or 2 How often do you have six or more drinks on one occasion: Never AUDIT-C Alcohol total score: 1 Non-prescribed substance use: denies use Caffeine: Yes How often does anyone, including family, friends and others, physically hurt you : never How often does anyone, including family, friends and others, insult or talk down to you: never How often does anyone, including family, friends and others, threaten you with harm: never How often does anyone, including family, friends and others, scream or curse at you: never Are you using contraception or practicing any form of control: No Exam Narrative: Exam Narrative: Well-nourished well-developed patient in no acute distress. Alert and oriented. Answers questions appropriately. Mood and affect are appropriate. Thoughts are goal oriented and rational. No tangential or magical thinking noted. Patient speaks in full sentences without needing to catch Her breath. HEENT: Normocephalic atraumatic. Pupils are equally round reactive to light. Extraocular muscles are intact. Conjunctivae are moist without any icterus noted. Moist mucous membranes. Posterior pharynx is normal. Neck is soft without any lymphadenopathy or thyromegaly. No masses are appreciated. Cardiovascular: Heart is regular rate and rhythm S1 and S2 are present without any murmurs. Lungs: Clear to auscultation bilaterally no wheezes rhonchi or rales are appreciated. Patient takes deep breaths without any discomfort. Abdomen: Soft and nontender nondistended with normal bowel sounds. Extremities: Bilateral lower extremities are without edema. delete Skin: Well perfused without any obvious rashes. Const: Vital Signs, click to edit/add: Vital Signs - 24 hr 06/27/24 09:56 Temperature 98.4 F Pulse Rate [Right Pulse Oximeter] 73 Respiratory Rate 18 Blood Pressure [Ri ght Upper Arm] 136/91 H Pulse Oximetry 97 Oxygen Delivery Me thod Room Air Course Course ED Course: Differential diagnosis includes thyroid disease, palpitations, arrhythmias, ACS, anxiety. EKG, read by me, shows sinus rhythm with sinus arrhythmia, pulse 71. chest x-ray, read by me, does not show any acute pathology. Lab work was unremarkable. Urinalysis was a poor specimen, culture is pending. At this time, patient will be sent home with a 2 week ZIO patch. She will follow up with primary care. Recommend returning to emergency department if episodes last more than a few seconds. Vital Signs Vital signs: Initial Vital Signs Temperature 98.4 F 06/27/24 09:56 Temperature Source Temporal Artery Scan 06/27/24 09:56 Pulse Rate 73 06/27/24 09:56 Pulse Rhythm Regular 06/27/24 09:56 Pulse Strength 3+ Normal 06/27/24 09:56 Respiratory Rate 18 06/27/24 09:56 Blood Pressure 136/91 H 06/27/24 09:56 Blood Pressure Mean 106 H 06/27/24 09:56 Blood Pressure Position Sitting 06/27/24 09:56 Pulse Oximetry 97 06/27/24 09:56 Oxygen Delivery Method Room Air 06/27/24 09:56 Vital Signs Temperature 98.4 F 06/27/24 09:56 Pulse Rate 73 06/27/24 09:56 Respiratory Rate 18 06/27/24 09:56 Blood Pressure 136/91 H 06/27/24 09:56 Pulse Oximetry 97 06/27/24 09:56 Oxygen Delivery Method Room Air 06/27/24 09:56 Temperature 98.4 F 06/27/24 09:56 Pulse Rate 73 06/27/24 09:56 Respiratory Rate 18 06/27/24 09:56 Blood Pressure 136/91 H 06/27/24 09:56 Pulse Oximetry 97 06/27/24 09:56 Oxygen Delivery Method Room Air 06/27/24 09:56 Medical Decision Making MDM Narrative Medical decision making narrative: 28-year-old female with an episode of chest pressure, recurring 2 times per week, now resolved. Patient will be sent home on a ZIO patch. Lab Data Lab results reviewed: Yes I reviewed the patient's lab results Labs: Lab Results 06/27/24 06/27/24 Range/Units 10:35 10:40 WBC 9.39 (4.50-11.00) K/uL RBC 4.92 (4.00-5.20) m/uL Hgb 14.2 (12.0-16.0) gm/dL Hct 43.6 (33.0-51.0) % MCV 89 (80-100) fL MCH 29 (26-34) pg MCHC 33 (32-36) gm/dL RDW Coeff of Alison 12.4 (11.5-15.5) % Plt Count 253 (140-440) K/uL Neut % (Auto) 67.7 (42.0-72.0) % Lymph % (Auto) 23.9 (20-44) % [place] % (Auto) 6.7 (0.0-11.0) % Eos % (Auto) 1.0 (0.0-7.0) % Baso % (Auto) 0.3 (0.0-3.0) % Neut # (Auto) 6.36 (1.7-7.0) K/uL Lymph # (Auto) 2.24 (0.90-2.90) K/uL [place] # (Auto) 0.60 (0.00-0.90) K/UL Eos # (Auto) 0.09 (0.00-0.50) K/uL Baso # (Auto) 0.03 (0.00-0.30) K/uL Abs Immat Gran (auto) 0.04 (0.00-0.30) K/uL Imm/Tot Granulo (auto) 0.4 % Sodium 136 (135-149) mmol/L Potassium 4.2 (3.6-5.1) mmol/L Chloride 102 (96-114) mmol/L Carbon Dioxide 25 (20-32) mmol/L Anion Gap 9 (7-15) mEq/L BUN 21 (5-24) mg/dL Creatinine 0.7 (0.5-1.5) mg/dL Estimated Creat Clear 111.01 Estimated GFR 120 ml/min Glucose 105 (60-115) mg/dL Lactate 0.6 (0.5-1.9) mmol/L Calcium 9.6 (8.4-10.6) mg/dL Magnesium 2.0 (1.5-2.6) mg/dL Total Bilirubin 0.5 (0.1-1.5) mg/dL Direct Bilirubin 0.2 (0.0-0.5) mg/dL AST 20 (12-35) U/L ALT 19 (4-35) U/L Alkaline Phosphatase 56 (40-150) U/L Troponin I < 0.01 L (0.01-0.04) ng/mL Total Protein 7.8 (6.0-8.3) g/dL Albumin 4.9 (3.3-5.0) g/dL TSH 1.490 (0.270-4.20) uIU/mL Urine Color Yellow (Yellow) Urine Appearance Slightly Cloudy A (Clear) Urine pH 6.0 (5.0-8.5) Ur Specific [place] 1.020 (1.000-1.030) Urine Protein Negative (Negative) Urine Glucose (UA) Negative (Negative) Urine Ketones Negative (Negative) Urine Blood Negative (Negative) Urine Nitrite Negative (Negative) Urine Bilirubin Negative (Negative) Urine Urobilinogen 0.2 (0.2-1.0) Ur Leukocyte Esterase 3+ A (Negative) Urine RBC 0-2 (0-2) Urine WBC 5-10 A (0-5) Ur Squamous Epith Cells Many A (None-Few) Urine Bacteria Moderate A (None) Urine HCG, Qual Negative (Negative) Imaging Data Chest x-ray: Attestation: I have reviewed the pertinent imaging results. Radiologist's impression: Chest 2 views Comparison: Chest x-ray 11/30/2011 Findings/Impression: Cardiovascular and mediastinum: Heart size and vasculature are normal in caliber and appearance. Mediastinum is within normal limits. Lungs and pleural spaces: Lungs are clear. No sign of infiltrate or mass. No sign of pleural effusion. No pneumothorax. Bones and soft tissues: No significant findings. ECG Data Attestation: I personally reviewed and interpreted this ECG as follows: Discharge Plan Discharge Clinical Impression: Atypical chest pain, Palpitations Patient Disposition: Home, Self-Care Condition: Stable Additional Instructions: Will be sent home with a 2 week heart monitor. You were follow-up with primary care to go over the results. If you develop chest pain that lasts and does not dissipate quickly, recommend you return to the emergency department. Prescriptions: No Action multivitamin Tablet 1 tab PO QDAY sumatriptan succinate 50 mg tablet 50 mg PO BID PRN (Reason: migraine) ibuprofen 600 mg tablet 600 mg PO Q6H PRNQty: 30 0RF Follow Up/Referrals: Randee Johnson MD [Primary Care Provider] - Stand Alone Forms: [facility] Info Instructions
--- NOTE | 2024-06-27 10:30 | CRLHL7_ITS ---
For Patients: As a result of the Century Cures Act, medical imaging exams and procedure reports are released immediately into your electronic medical record. You may view this report before your referring provider. If you have questions, please contact your health care provider. Indication: Shortness of breath and chest pain Technique: Chest 2 views Comparison: Chest x-ray 11/30/2011 Findings/Impression: Cardiovascular and mediastinum: Heart size and vasculature are normal in caliber and appearance. Mediastinum is within normal limits. Lungs and pleural spaces: Lungs are clear. No sign of infiltrate or mass. No sign of pleural effusion. No pneumothorax. Bones and soft tissues: No significant findings. Dictated by Ramesh Bess MD @ 06/27/2024 10:55:02 AM (Electronically Signed)
[2024-06-27 10:45] LABS: Lactate* 0.6 mmol/L (0.5-1.9)
[2024-06-27 10:51] LABS: Appearance Urine Slightly Cloudy (Clear); Bilirubin Urine Negative (Negative); Blood Urine Negative (Negative); Color Urine Yellow (Yellow); Glucose Urine Negative (Negative); Ketones Urine Negative (Negative); Leukocyte Esterase Urine 3+ (Negative); Nitrite Urine Negative (Negative); Protein Urine Negative (Negative); Ur HCG Qualitative* Negative (Negative); Urobilinogen Urine 0.2 (0.2-1.0)
[2024-06-27 10:51] LABS: Basophils Absolute Auto 0.03 K/uL (0.00-0.30); Basophils Percent Auto 0.3 % (0.0-3.0); Eosinophils Absolute Auto 0.09 K/uL (0.00-0.50); Hematocrit 43.6 % (33.0-51.0); Hemoglobin* 14.2 gm/dL (12.0-16.0); Immature Granulocytes Abs Auto 0.04 K/uL (0.00-0.30); Immature Granulocytes Pct Auto 0.4 %; Lymphocytes Absolute Auto 2.24 K/uL (0.90-2.90); Lymphocytes Percent Auto 23.9 % (20-44); Mean Corpuscular HGB Conc 33 gm/dL (32-36); Mean Corpuscular Hemoglobin 29 pg (26-34); Mean Corpuscular Volume 89 fL (80-100); Monocytes Percent Auto 6.7 % (0.0-11.0); Neutrophils Absolute Auto 6.36 K/uL (1.7-7.0); Neutrophils Percent Auto 67.7 % (42.0-72.0); Platelet Count* 253 K/uL (140-440); RDW Coefficient of Variation % 12.4 % (11.5-15.5); Red Blood Count 4.92 m/uL (4.00-5.20); White Blood Count* 9.39 K/uL (4.50-11.00)
[2024-06-27 11:04] LABS: RBC Urine 0-2 (0-2); Squamous Epithelial Cell Urine Many (None-Few)
[2024-06-27 11:05] LABS: Bacteria Urine Moderate
[2024-06-27 11:06] LABS: Albumin* 4.9 g/dL (3.3-5.0); Chloride* 102 mmol/L (96-114); Potassium* 4.2 mmol/L (3.6-5.1); Sodium* 136 mmol/L (135-149)
[2024-06-27 11:08] LABS: Anion Gap 9 mEq/L (7-15); Bilirubin Direct* 0.2 mg/dL (0.0-0.5); Bilirubin Total* 0.5 mg/dL (0.1-1.5); Carbon Dioxide* 25 mmol/L (20-32); Creatinine* 0.7 mg/dL (0.5-1.5); Est. Creatinine Clearance* 111.01; Estimated Glomerular Filt Rate 120 ml/min; Total Protein* 7.8 g/dL (6.0-8.3)
[2024-06-27 11:09] LABS: Alanine Aminotransferase* 19 U/L (4-35); Alkaline Phosphatase* 56 U/L (40-150); Aspartate Amino Transferase* 20 U/L (12-35); Blood Urea Nitrogen* 21 mg/dL (5-24); Calcium* 9.6 mg/dL (8.4-10.6); Glucose* 105 mg/dL (60-115); Slide Review Reflex No
[2024-06-27 11:23] LABS: Troponin I* < 0.01 ng/mL (0.01-0.04)
== END 2024-06-27 12:34 | disposition home or self-care (01) ==
LOC: ED 10:33
PROVIDERS: Emergency Provider Family Medicine; PCP Family Medicine
DX: R07.89 Other chest pain (principal); R00.2 Palpitations
CPT/HCPCS: 36415; 71046; 80048; 80076; 81001; 81025; 83605; 83735; 84443; 84484; 85025; 87086; 93246; 94761; 99284